=== PATIENT | female | born 1945 | race Caucasian/White ===

== ENCOUNTER 2017-01-21 10:11 | Emergency (ER) | payer MEDICARE ==
[2017-01-21] MEDS ORDERED: NACL 0.9% 1000 ML 1,000 ML IV ONE (11:09)
[2017-01-21] MEDS ORDERED: TORADOL IV ONE (11:09)
--- NOTE | 2017-01-21 11:13 | Emergency Department Report ---
Chief Complaint: Abdominal Pain Stated Complaint: LWOER ABD PAIN Time Seen by Provider: 01/21/17 10:41 - HPI History of Present Illness: Patient is a 71-year-old female who is presenting with lower abdominal pain. Patient was sent in by Dr. Weaver for further evaluation. Patient's blood work at the office was within normal limits. The urinalysis showed trace leukocytes but otherwise showed no further abnormality on the urinalysis done before she arrived. Patient states that there is no nausea vomiting diarrhea or fever. She didn't is tender in the lower abdomen at this time. This patient is here for CT scan. I am also going to recheck the patient's urinalysis to ensure that the urinalysis before she presented here was accurate - Exam Vital Signs: Vital Signs 01/21/17 10:22 Temperature 98.4 F Pulse Rate 102 H Respiratory 20 Rate Blood Pressure 106/65 O2 Sat by Pulse 96 Oximetry Physical Exam: Only abnormal exam finding is on the abdomen exam patient has suprapubic tenderness but no rebound or guarding general exam patient in no acute distress well appearing HEENT within normal limits C equal round reactive to light neck exam normal lungs clear to auscultation bilaterally heart S1-S2 normal no gallops or rubs or murmurs. Exam soft with suprapubic tenderness only no rebound or guarding skin exam normal NEURO exam within normal limits MSE screening note: Focused history and physical exam performed. Due to findings the following was ordered: CT abdomen and pelvis was ordered as well as a repeat urinalysis. Once the CT returned showing diverticulitis the urinalysis was no longer needed and the patient will be discharged at this time ED Medical Decision Making - Radiology Data Radiology results: report reviewed, image reviewed Acute sigmoid diverticulitis ED Disposition for MSE Disposition: DC-01 TO HOME OR SELFCARE Is pt being admited?: No Does the pt Need Aspirin: No Condition: Fair Instructions: Abdominal Pain (ED), Diverticulitis (ED) Prescriptions: Ciprofloxacin HCl [Cipro] 500 mg PO BID #20 tablet Docusate Sodium [Colace] 100 mg PO BID #30 capsule HYDROcodone/APAP 5-325 [[place] 5/325] 1 each PO Q6HR PRN #15 tablet PRN Reason: Pain metroNIDAZOLE [Flagyl] 500 mg PO Q8HR 10 Days tablet Ondansetron [Zofran Odt] 4 mg PO Q8HR PRN #10 tab.rapdis PRN Reason: Nausea And Vomiting Referrals: PRIMARY CARE, [Primary Care Provider] - 3-5 Days
--- NOTE | 2017-01-21 13:06 | Cat Scan Report ---
FINAL REPORT PROCEDURE: CT ABDOMEN PELVIS WO CON TECHNIQUE: Computerized axial tomography of the abdomen and pelvis was performed without intravenous contrast. This study is performed without intravascular contrast material and its sensitivity for abdominal and pelvic pathology, including neoplasms, inflammation, abscess, free fluid, thrombosis, arterial dissection and infarction, is reduced compared with a contrast enhanced study. Oral contrast was not administered limiting evaluation of the bowel as well. HISTORY: Abdominal Pain COMPARISON: No prior studies are available for comparison. FINDINGS: Visualized lower thorax: Calcified granuloma at the right lung base anteriorly.. Liver: A couple of hypodensities the largest of which is 1.1 x 1.2 centimeters of the subcapsular right lobe. Spleen: Normal size and attenuation. Gallbladder and biliary system: Normal. Pancreas: Normal. Adrenals: Normal. Kidneys: Multiple 1-2 millimeter calculi bilaterally. No hydronephrosis. GI tract: Colonic diverticulosis worst of the sigmoid colon. Sigmoid diverticulitis. 1.5 x 1.9 centimeter rounded fluid collection adjacent to the sigmoid, for example seen on image 37 coronal series. Lymph nodes and mesentery: Normal. Vasculature: Atherosclerosis. No abdominal aortic aneurysm. Bladder: Normal. Reproductive organs: Normal. Peritoneum: No free fluid. Musculoskeletal structures: Mild degenerative changes of the spine. Disc protrusion with focal mild central canal stenosis at L4/L5.. Other: None. IMPRESSION: Sigmoid diverticulitis. 1.5 x 1.9 centimeter rounded fluid collection adjacent to the sigmoid colon. Clinical followup is recommended as well as follow-up CT after treatment to include oral contrast so as to exclude evolving abscess. Sub centimeter bilateral renal calculi. Hepatic hypodensities likely cysts or hemangiomas. Further evaluation with contrast-enhanced CT or ultrasound would be of benefit. Correlate with liver enzymes. Mild degenerative changes of the spine. Disc protrusion centrally with focal mild central canal stenosis at L4/L5.
[2017-01-21 13:57] VITALS: BP 119/86
[2017-01-21 14:40] LABS: Bilirubin,Urine NEG (Negative); Blood,Urine NEG (Negative); Ketones,Urine NEG (Negative); Leukocyte Esterase,Urine TR (Negative); Mucus,Urine FEW /HPF; Nitrite,Urine NEG (Negative); Protein,Urine <15 mg/dL mg/dL (Negative); Urobilinogen,Urine < 2.0 mg/dL (<2.0)
== END 2017-01-21 13:57 | disposition home or self-care (01) ==
LOC: ED 10:11
DX: R10.30 Lower abdominal pain, unspecified (principal)
CPT/HCPCS: 74176; 81001; 96361; 96374; 99284; J1885; J7030